=== PATIENT | male | born 1970 | race Caucasian/White ===

== ENCOUNTER 2020-01-05 21:24 | Emergency (ER) | payer SELFPAY ==
[~2020-01-05] VITALS: Ht 170.2 cm; Wt 98.5 kg
[2020-01-05 21:49] VITALS: BP 118/79
== END 2020-01-05 22:20 | disposition home or self-care (01) ==
LOC: ED 22:00
DX: H65.02 Acute serous otitis media, left ear (principal); B34.9 Viral infection, unspecified
CPT/HCPCS: 99283

== ENCOUNTER 2020-02-19 14:59 | Emergency (ER) | payer MEDICAID, OTHER, SELFPAY ==
[~2020-02-19] VITALS: Ht 170.2 cm; Wt 91.0 kg
--- NOTE | 2020-02-19 15:30 | NUR ---
patient arrives to the er with a headache, body aches, cough, no sob, for one day. he feels weak.
[2020-02-19] MEDS ORDERED: ONDANSETRON 2MG/ML, 2ML ONE (16:22)
[2020-02-19] MEDS ORDERED: IBUPROFEN 600 MG TABLET ONE (16:22)
[2020-02-19] MEDS ORDERED: ACETAMINOPHEN 500 MG TABLET ONE (16:22)
[2020-02-19] MEDS ORDERED: IBUPROFEN 600 MG TABLET PO PRN (16:30)
[2020-02-19] MEDS ORDERED: SODIUM CHLORIDE 0.9% 1,000ML IVBOLUS ONE (16:30)
[2020-02-19] MEDS ORDERED: ONDANSETRON 2MG/ML, 2ML IVPush ONE (16:30)
[2020-02-19] MEDS ORDERED: SODIUM CHLORIDE FLUSH 10ML SYR IVF ONE (16:30)
[2020-02-19] MEDS ORDERED: ACETAMINOPHEN 500 MG TABLET PO PRN (16:30)
[2020-02-19 16:39] LABS: RAPID INFLUENZA A Negative (Negative); RAPID INFLUENZA B Negative (Negative)
--- NOTE | 2020-02-19 16:39 | NUR ---
BREAK RN: PT LAYING ON GURNEY, DOZING INTERMITTENTLY. SR PER MONITOR, AUTO BP AND PULSE OX IN PLACE. AWAITING TEST RESULTS.
--- NOTE | 2020-02-19 17:29 | NUR ---
PT PROVIDED WITH WATER WITH MEDICATION APPROX 1 HR AGO. PT HAS HAD NO N/V SINCE WATER AND MEDICATION. PT DOZING ON GURNEY. NAD NOTED. SKIN PWD. RESP EVEN AND UNLABORED. CALL LIGHT WITHIN REACH.
[2020-02-19 18:05] VITALS: BP 114/75
== END 2020-02-19 18:07 | disposition home or self-care (01) ==
LOC: ED 16:03
DX: R50.9 Fever, unspecified (principal); Z20.828 Contact with and (suspected) exposure to other viral communicable diseases; R11.2 Nausea with vomiting, unspecified; R00.0 Tachycardia, unspecified; Z59.0 Homelessness
CPT/HCPCS: 71045; 87081; 87400; 87880; 93005; 96361; 96374; 99285; J2405; J7030

== ENCOUNTER 2020-05-21 01:59 | Emergency (ER) | payer MEDICAID, OTHER, SELFPAY ==
[~2020-05-21] VITALS: Ht 170.2 cm; Wt 95.0 kg
[2020-05-21] MEDS ORDERED: LIDOCAINE-MPF 1%, 5ML ONE ×2 (02:38→03:06)
[2020-05-21] MEDS ORDERED: LIDOCAINE-MPF 1%, 5ML INFIL ONE (03:00)
[2020-05-21 04:00] VITALS: BP 138/65
--- NOTE | 2020-05-21 04:01 | NUR ---
RIGHT RING FINGER WRAPPED, PATIENT TOLERATED WELL. INSTRUCTIONS GIVEN. VERBALIZED UNDERSTANDING OF SELF CARE AT HOME AND DISCHARGE INSTRUCTION. NO NOTED ACUTE DISTRESS. AMBULATORY TO DISCHARGE WINDOW
== END 2020-05-21 04:03 | disposition home or self-care (01) ==
LOC: ED 03:57
DX: M65.341 Trigger finger, right ring finger (principal); M77.8 Other enthesopathies, not elsewhere classified
CPT/HCPCS: 64450; 99284